=== PATIENT | male | born 1955 | race Caucasian/White ===

== ENCOUNTER → 2023-05-13 | Outpatient (CLI) | payer MEDICARE, MEDICAID | LOC: M PLAIMG 08:42 | PROVIDERS: ATTEND Internal Medicine Cardiovascular Disease | DX: R06.02 Shortness of breath (principal); I08.3 Combined rheumatic disorders of mitral, aortic and tricuspid valves ==

== ENCOUNTER → 2023-11-05 | Outpatient (CLI) | payer MEDICARE, MEDICAID | LOC: M RAD 08:13 | PROVIDERS: ATTEND Internal Medicine Gastroenterology | DX: K74.60 Unspecified cirrhosis of liver (principal); K90.0 Celiac disease; K76.0 Fatty (change of) liver, not elsewhere classified ==

== ENCOUNTER → 2025-01-03 | Outpatient (CLI) | payer MEDICARE, MEDICAID ==
[~2025-01-03] MED LIST: UNRESOLVED CLARIFICATION ENTRY XX SCH
== END ==
LOC: M CARPUL 10:44
PROVIDERS: ATTEND Physician Assistant
DX: I44.7 Left bundle-branch block, unspecified (principal)
CPT/HCPCS: 78451; 93017; A9500; J2785